=== PATIENT | female | born 1950 | race Caucasian/White ===

== ENCOUNTER 2020-06-16 17:02 | Inpatient (IN) | payer MEDICARE, OTHER, SELFPAY ==
[2020-06-16 17:03] VITALS: BMI 45.3
[2020-06-16 17:10] VITALS: BP 160/81; PULSE 64; RESP 18; TEMP 36.6; O2SAT 95
[2020-06-16 17:22] LABS: Glucose Point of Care 78 mg/dL (70-110)
--- NOTE | 2020-06-16 17:34 | XRR_ITS ---
PROCEDURE INFORMATION: Exam: XR Chest, 1 View Exam date and time: 06/16/2020 5:37 PM Age: 70 years old Clinical indication: Shortness of breath; Prior surgery; Surgery date: 6+ months; Surgery type: Heart stents; Additional info: AMS TECHNIQUE: Imaging protocol: XR of the chest Views: 1 view. COMPARISON: No relevant prior studies available. FINDINGS: Lungs: There is mild ground-glass opacity in the lung bases compatible with mild pneumonitis, interstitial edema or atelectasis. There is no dense lobar consolidation. Pleural space: Unremarkable. No pleural effusion. No pneumothorax. Heart/Mediastinum: The heart is enlarged. Bones/joints: No acute abnormality. Postoperative changes in the left humerus are noted. XR/XR chest 1V portable [id number] IMPRESSION: There is mild ground-glass opacity in the lung bases compatible with mild pneumonitis, interstitial edema or atelectasis.
--- NOTE | 2020-06-16 17:34 | CTR_ITS ---
PROCEDURE INFORMATION: Exam: CT Head Without Contrast Exam date and time: 06/16/2020 6:02 PM Age: 70 years old Clinical indication: Altered mental status/memory loss; Confusion or disorientation; Prior surgery; Surgery date: 6+ months; Surgery type: Post xrt craniotomy; Patient HX: Recent CVA C/O intermittent confusion; Additional info: AMS TECHNIQUE: Imaging protocol: Computed tomography of the head without contrast. Radiation optimization: All CT scans at this facility use at least one of these dose optimization techniques: automated exposure control; mA and/or kV adjustment per patient size (includes targeted exams where dose is matched to clinical indication); or iterative reconstruction. COMPARISON: No relevant prior studies available. RADIATION DOSE METRICS: Total DLP (mGy-cm): 880.81 FINDINGS: Brain: There is encephalomalacia of the left temporal lobe. There is volume loss and periventricular low density compatible with chronic small vessel disease changes. There is no acute hemorrhage, edema or mass effect. Ventricles: Normal. No ventriculomegaly. Bones/joints: Postoperative changes in the left temporal parietal bone are noted. Sinuses: There is mucosal thickening in the sinuses compatible probable chronic sinusitis. Mastoid air cells: There is trace opacification left mastoid air cells. The right mastoid air cells are clear. Soft tissues: Unremarkable. CT/CT head wo con* [id number] IMPRESSION: No acute intracranial abnormality. Chronic findings are noted as above. Radiation Dose CTDIVOL = (mGy): DLP = 880.81 (mGy-cm)
--- NOTE | 2020-06-16 17:50 | ED_ITS ---
Documented by User: Sander Harrell DO 06/19/20 06:12 HPI - Altered Mental Status General: Chief Complaint: Altered Mental Status Stated Complaint: AMS Time Seen by Provider: 06/16/20 17:18 History of Present Illness: HPI narrative: 70-year-old female presents emergency room via EMS with her she was discharged from hospital in [place] yesterday after a stroke is not able to care for her at home her blood sugar this morning this afternoon when they picked her up was 35 it improved after administration of D50. is complaining of altered mental status. She is not had any chest pain or dyspnea no trauma no vomiting or diarrhea denies dysuria. states she was awake and alert and interactive when she was discharged from the intermediate and since then she has gotten worse she is unable to recognize people she is known and regularly interacts with there is no fever no one that they know of is been exposed to COVID he is uncertain if she was screened for COVID at the hospital in [place]. complaint: altered mental status and confusion Onset (ago): hour(s) Timing confirmed by: spouse Severity: moderate Consistency of symptoms: Getting Worse Context: other (Recent CVA) Treatments prior to arrival: glucose Review of Systems General: Reports: ROS unobtainable due to mental status PFSH ED PFSH: Medical History (Updated 06/17/20 @ 06:53 by Carly Crowder MD) Coronary artery disease CVA (cerebral vascular accident) (~06/2020) Diabetes mellitus Hyperlipidemia Hypertension Renal carcinoma Surgical History (Updated 06/17/20 @ 06:53 by Carly Crowder MD) History of cataract surgery History of cholecystectomy History of hysterectomy History of nephrectomy, right History of PTCA Previous back surgery S/P cholecystectomy Family History (Updated 06/17/20 @ 07:53 by Carly Crowder MD) Other Hypertension Social History (Updated 06/17/20 @ 07:53 by Carly Crowder MD) Household members: spouse Marital status: Additional social history: Denies alcohol and drug use Physical Exam Const: COMMON NORMALS: no acute distress GENERAL APPEARANCE: cooperative and comfortable HENMT: COMMON NORMALS: normocephalic, atraumatic and hearing grossly normal bilaterally HEAD & SCALP: normocephalic and atraumatic Eye: COMMON NORMALS: Equal, round and reactive pupils present, EOMs intact bilaterally, conjunctivae normal and no scleral icterus CONJUNCTIVA: Yes conjunctivae normal PUPIL: Yes Equal, round and reactive pupils present Neck/C-Spine: COMMON NORMALS: full ROM, no lymphadenopathy, supple and no JVD Lymph: LYMPHATIC: no lymphadenopathy noted and no lymphedema noted Resp: COMMON NORMALS: normal respiratory effort, No retractions, No use of accessory muscles and clear to auscultation bilaterally AUSCULTATION: clear to auscultation bilaterally Cardio: COMMON NORMALS: no JVD, regular rate, regular rhythm and No murmurs present (Cardio) RATE: regular rate RHYTHM: regular rhythm GI: COMMON NORMALS: Soft to palpation and No hepatosplenomegaly present AUSCULTATION: Yes normoactive bowel sounds PALPATION: Yes Soft to palpation, No Tenderness to palpation present (GI), No Guarding due to palpation present (GI) and Yes No hepatosplenomegaly present Extremity: COMMON NORMALS: normal to inspection, capillary refill normal, no clubbing, cyanosis or edema, no calf tenderness and no pedal edema Skin: COMMON NORMALS: no rashes or lesions noted GENERAL SKIN EXAM: no rashes or lesions noted Course Vital Signs: Vital signs: Vital Signs Temperature 98.1 F 06/19/20 03:50 Pulse Rate 62 06/19/20 03:50 Respiratory Rate 16 06/19/20 03:50 Blood Pressure 181/65 06/19/20 03:50 Pulse Oximetry 97 06/19/20 03:50 MDM - Altered Mental Status MDM Narrative: Medical decision making narrative: Blood pressure poorly controlled recently hospitalized for stroke. Further evaluation pending care transferred to Dr. Taylor at change of shift. Lab Data: Labs: Lab Results 06/16/20 06/16/20 06/16/20 Range/Units 15:35 15:35 17:17 WBC 14.9 H (4.0-10.0) 10^3/ uL RBC 4.25 (4.1-5.3) 10^6/u L Hgb 11.5 (11.5-15.3) g/dL Hct 36.5 L (37.0-47.0) % MCV 85.9 (81-99) fL MCH 27.1 L (28.0-34.0) pg MCHC 31.5 (30.0-36.0) g/dL RDW 14.4 (12.1-15.1) % Plt Count 368 (130-400) 10^3/c mm MPV 10.6 H (7.4-10.4) fL Neut % (Auto) 69.2 % Lymph % (Auto) 17.7 % [place] % (Auto) 9.5 % Eos % (Auto) 2.5 % Baso % (Auto) 0.5 % Neut # (Auto) 10.32 H (1.8-7.7) 10^3/u L Lymph # (Auto) 2.6 (0.8-4.8) 10^3/u L [place] # (Auto) 1.4 H (0.2-0.9) 10^3/u L Eos # (Auto) 0.4 (0.0-0.8) 10^3/u L Baso # (Auto) 0.1 (0.0-0.1) 10^3/u L Nucleated RBC % (a uto) 0 % Nucleated RBCs # 0.0 /100WBC Specimen Type Sample Site ABG pH (7.35-7.45) ABG pCO2 (35-45) mmHg ABG pO2 (80.0-100.0) mmH g ABG HCO3 (22-26) mmol/L ABG Base Excess (-2.0-2.0) mmol/ L Alfredo Test Hematocrit (37-47) % Hgb O2 Saturation (95-100) % Carboxyhemoglobin (0.4-20.1) %THgb Methemoglobin (0.4-1.5) % Total Hemoglobin (12-16) g/dL O2 Delivery Device FiO2 % Certified Phlebotomy Technician ID Sodium 142 (136-145) mmol/L Potassium 3.9 (3.5-5.1) mmol/L Chloride 108 H (98-107) mmol/L Carbon Dioxide 22 (22-29) mmol/L Anion Gap 15.9 (5-19) BUN 25 H (8-23) mg/dL Creatinine 1.2 H (0.5-0.9) mg/dL GFR Calculation 44.7 L (90-130) mL/min Glucose 31 L* (65-115) mg/dL POC Glucose 78 (70-110) mg/dL Calculated Osmolal ity 287 (285-295) mOsm/k g Lactate (0.5-2.2) mmol/L Calcium 9.2 (8.5-10.5) mg/dL Magnesium 2.1 (1.7-2.3) mg/dL Total Bilirubin 0.2 (0.15-1.2) mg/dL AST 25 (0-32) U/L ALT 16 (0-33) U/L Alkaline Phosphata se 97 (35-105) IU/L Ammonia (11-51) umol/L Creatine Kinase 83 (26-192) U/L Total Protein 7.7 (6.6-8.7) g/dL Albumin 4.0 (3.5-5.2) g/dL Globulin 3.7 (1.3-4.6) g/dL Lipase 18 (13-60) U/L SARS-CoV-2 Ag (Rap id) (Negative) 06/16/20 06/16/20 06/16/20 Range/Units 18:10 18:10 19:00 WBC (4.0-10.0) 10^3/ uL RBC (4.1-5.3) 10^6/u L Hgb (11.5-15.3) g/dL Hct (37.0-47.0) % MCV (81-99) fL MCH (28.0-34.0) pg MCHC (30.0-36.0) g/dL RDW (12.1-15.1) % Plt Count (130-400) 10^3/c mm MPV (7.4-10.4) fL Neut % (Auto) % Lymph % (Auto) % [place] % (Auto) % Eos % (Auto) % Baso % (Auto) % Neut # (Auto) (1.8-7.7) 10^3/u L Lymph # (Auto) (0.8-4.8) 10^3/u L [place] # (Auto) (0.2-0.9) 10^3/u L Eos # (Auto) (0.0-0.8) 10^3/u L Baso # (Auto) (0.0-0.1) 10^3/u L Nucleated RBC % (a uto) % Nucleated RBCs # /100WBC Specimen Type Arterial Sample Site Radial, right ABG pH 7.36 (7.35-7.45) ABG pCO2 38.9 (35-45) mmHg ABG pO2 81.6 (80.0-100.0) mmH g ABG HCO3 21.9 L (22-26) mmol/L ABG Base Excess -3.3 L (-2.0-2.0) mmol/ L Alfredo Test Pos Hematocrit 35.0 L (37-47) % Hgb O2 Saturation 98.8 (95-100) % Carboxyhemoglobin 0.5 (0.4-20.1) %THgb Methemoglobin < 0.0 L (0.4-1.5) % Total Hemoglobin 11.4 L (12-16) g/dL O2 Delivery Device Room air FiO2 21.0 % Certified Phlebotomy Technician ID glc Sodium (136-145) mmol/L Potassium (3.5-5.1) mmol/L Chloride (98-107) mmol/L Carbon Dioxide (22-29) mmol/L Anion Gap (5-19) BUN (8-23) mg/dL Creatinine (0.5-0.9) mg/dL GFR Calculation (90-130) mL/min Glucose (65-115) mg/dL POC Glucose (70-110) mg/dL Calculated Osmolal ity (285-295) mOsm/k g Lactate 0.8 (0.5-2.2) mmol/L Calcium (8.5-10.5) mg/dL Magnesium (1.7-2.3) mg/dL Total Bilirubin (0.15-1.2) mg/dL AST (0-32) U/L ALT (0-33) U/L Alkaline Phosphata se (35-105) IU/L Ammonia 54 H (11-51) umol/L Creatine Kinase (26-192) U/L Total Protein (6.6-8.7) g/dL Albumin (3.5-5.2) g/dL Globulin (1.3-4.6) g/dL Lipase (13-60) U/L SARS-CoV-2 Ag (Rap id) (Negative) 06/16/20 06/16/20 Range/Units 21:24 21:34 WBC (4.0-10.0) 10^3/ uL RBC (4.1-5.3) 10^6/u L Hgb (11.5-15.3) g/dL Hct (37.0-47.0) % MCV (81-99) fL MCH (28.0-34.0) pg MCHC (30.0-36.0) g/dL RDW (12.1-15.1) % Plt Count (130-400) 10^3/c mm MPV (7.4-10.4) fL Neut % (Auto) % Lymph % (Auto) % [place] % (Auto) % Eos % (Auto) % Baso % (Auto) % Neut # (Auto) (1.8-7.7) 10^3/u L Lymph # (Auto) (0.8-4.8) 10^3/u L [place] # (Auto) (0.2-0.9) 10^3/u L Eos # (Auto) (0.0-0.8) 10^3/u L Baso # (Auto) (0.0-0.1) 10^3/u L Nucleated RBC % (a uto) % Nucleated RBCs # /100WBC Specimen Type Sample Site ABG pH (7.35-7.45) ABG pCO2 (35-45) mmHg ABG pO2 (80.0-100.0) mmH g ABG HCO3 (22-26) mmol/L ABG Base Excess (-2.0-2.0) mmol/ L Alfredo Test Hematocrit (37-47) % Hgb O2 Saturation (95-100) % Carboxyhemoglobin (0.4-20.1) %THgb Methemoglobin (0.4-1.5) % Total Hemoglobin (12-16) g/dL O2 Delivery Device FiO2 % Certified Phlebotomy Technician ID Sodium (136-145) mmol/L Potassium (3.5-5.1) mmol/L Chloride (98-107) mmol/L Carbon Dioxide (22-29) mmol/L Anion Gap (5-19) BUN (8-23) mg/dL Creatinine (0.5-0.9) mg/dL GFR Calculation (90-130) mL/min Glucose (65-115) mg/dL POC Glucose 201 (70-110) mg/dL Calculated Osmolal ity (285-295) mOsm/k g Lactate (0.5-2.2) mmol/L Calcium (8.5-10.5) mg/dL Magnesium (1.7-2.3) mg/dL Total Bilirubin (0.15-1.2) mg/dL AST (0-32) U/L ALT (0-33) U/L Alkaline Phosphata se (35-105) IU/L Ammonia (11-51) umol/L Creatine Kinase (26-192) U/L Total Protein (6.6-8.7) g/dL Albumin (3.5-5.2) g/dL Globulin (1.3-4.6) g/dL Lipase (13-60) U/L SARS-CoV-2 Ag (Rap id) Negative (Negative) Discharge Plan Discharge Patient Disposition: Admitted As Inpatient Admit Provider: Carly Crowder Clinical Impression: Hypoglycemia CVA (cerebral vascular accident) Qualifiers: CVA mechanism: thrombosis Precerebral and cerebral artery: middle cerebral artery Laterality of affected vessel: left Qualified Code(s): I63.312 - Cerebral infarction due to thrombosis of left middle cerebral artery Condition: Stable Discharge Date/Time: 06/16/20 23:01 Coding Level of Care Code ED Aircraft Maintenance Supervisor for Chg Fwd Documented by User: Douglas Taylor DO 06/17/20 04:46 HPI - Altered Mental Status General: Chief Complaint: Altered Mental Status Stated Complaint: AMS Time Seen by Provider: 06/16/20 17:18 PFSH ED PFSH: Medical History (Updated 06/17/20 @ 06:53 by Carly Crowder MD) Coronary artery disease CVA (cerebral vascular accident) (~06/2020) Diabetes mellitus Hyperlipidemia Hypertension Renal carcinoma Surgical History (Updated 06/17/20 @ 06:53 by Carly Crowder MD) History of cataract surgery History of cholecystectomy History of hysterectomy History of nephrectomy, right History of PTCA Previous back surgery S/P cholecystectomy Family History (Updated 06/17/20 @ 07:53 by Carly Crowder MD) Other Hypertension Social History (Updated 06/17/20 @ 07:53 by Carly Crowder MD) Household members: spouse Marital status: Additional social history: Denies alcohol and drug use Course Consultations: Consultation #1: fish Vital Signs: Vital signs: Vital Signs Temperature 98.1 F 06/19/20 03:50 Pulse Rate 62 06/19/20 03:50 Respiratory Rate 16 06/19/20 03:50 Blood Pressure 181/65 06/19/20 03:50 Pulse Oximetry 97 06/19/20 03:50 MDM - Altered Mental Status MDM Narrative: Medical decision making narrative: 70-year-old female checked out to me at shift change by Dr. Harrell. This lady had been hospitalized at [facility] in [place] recently post CVA. She was not treated with thrombolytics. She has been home for a couple of days, and has been very weak. She has not had proper intake. She is on insulin. She had mental status changes at home, and was found to have a blood sugar of 31. She got glucose in the field, which increased her glucose, but then it started to fall again here. She is placed on a drip of D5 normal saline which is kept her sugar up so far. She is unable to perform ADLs at home. admits that he is having trouble taking care of her. He is also required IV doses of medication for her hypertension here which is been uncontrolled. She will be admitted. Hospitalist agrees. Lab Data: Labs: Lab Results 06/16/20 06/16/20 06/16/20 Range/Units 15:35 15:35 17:17 WBC 14.9 H (4.0-10.0) 10^3/ uL RBC 4.25 (4.1-5.3) 10^6/u L Hgb 11.5 (11.5-15.3) g/dL Hct 36.5 L (37.0-47.0) % MCV 85.9 (81-99) fL MCH 27.1 L (28.0-34.0) pg MCHC 31.5 (30.0-36.0) g/dL RDW 14.4 (12.1-15.1) % Plt Count 368 (130-400) 10^3/c mm MPV 10.6 H (7.4-10.4) fL Neut % (Auto) 69.2 % Lymph % (Auto) 17.7 % [place] % (Auto) 9.5 % Eos % (Auto) 2.5 % Baso % (Auto) 0.5 % Neut # (Auto) 10.32 H (1.8-7.7) 10^3/u L Lymph # (Auto) 2.6 (0.8-4.8) 10^3/u L [place] # (Auto) 1.4 H (0.2-0.9) 10^3/u L Eos # (Auto) 0.4 (0.0-0.8) 10^3/u L Baso # (Auto) 0.1 (0.0-0.1) 10^3/u L Nucleated RBC % (a uto) 0 % Nucleated RBCs # 0.0 /100WBC Specimen Type Sample Site ABG pH (7.35-7.45) ABG pCO2 (35-45) mmHg ABG pO2 (80.0-100.0) mmH g ABG HCO3 (22-26) mmol/L ABG Base Excess (-2.0-2.0) mmol/ L Alfredo Test Hematocrit (37-47) % Hgb O2 Saturation (95-100) % Carboxyhemoglobin (0.4-20.1) %THgb Methemoglobin (0.4-1.5) % Total Hemoglobin (12-16) g/dL O2 Delivery Device FiO2 % Certified Phlebotomy Technician ID Sodium 142 (136-145) mmol/L Potassium 3.9 (3.5-5.1) mmol/L Chloride 108 H (98-107) mmol/L Carbon Dioxide 22 (22-29) mmol/L Anion Gap 15.9 (5-19) BUN 25 H (8-23) mg/dL Creatinine 1.2 H (0.5-0.9) mg/dL GFR Calculation 44.7 L (90-130) mL/min Glucose 31 L* (65-115) mg/dL POC Glucose 78 (70-110) mg/dL Calculated Osmolal ity 287 (285-295) mOsm/k g Lactate (0.5-2.2) mmol/L Calcium 9.2 (8.5-10.5) mg/dL Magnesium 2.1 (1.7-2.3) mg/dL Total Bilirubin 0.2 (0.15-1.2) mg/dL AST 25 (0-32) U/L ALT 16 (0-33) U/L Alkaline Phosphata se 97 (35-105) IU/L Ammonia (11-51) umol/L Creatine Kinase 83 (26-192) U/L Total Protein 7.7 (6.6-8.7) g/dL Albumin 4.0 (3.5-5.2) g/dL Globulin 3.7 (1.3-4.6) g/dL Lipase 18 (13-60) U/L SARS-CoV-2 Ag (Rap id) (Negative) 06/16/20 06/16/20 06/16/20 Range/Units 18:10 18:10 19:00 WBC (4.0-10.0) 10^3/ uL RBC (4.1-5.3) 10^6/u L Hgb (11.5-15.3) g/dL Hct (37.0-47.0) % MCV (81-99) fL MCH (28.0-34.0) pg MCHC (30.0-36.0) g/dL RDW (12.1-15.1) % Plt Count (130-400) 10^3/c mm MPV (7.4-10.4) fL Neut % (Auto) % Lymph % (Auto) % [place] % (Auto) % Eos % (Auto) % Baso % (Auto) % Neut # (Auto) (1.8-7.7) 10^3/u L Lymph # (Auto) (0.8-4.8) 10^3/u L [place] # (Auto) (0.2-0.9) 10^3/u L Eos # (Auto) (0.0-0.8) 10^3/u L Baso # (Auto) (0.0-0.1) 10^3/u L Nucleated RBC % (a uto) % Nucleated RBCs # /100WBC Specimen Type Arterial Sample Site Radial, right ABG pH 7.36 (7.35-7.45) ABG pCO2 38.9 (35-45) mmHg ABG pO2 81.6 (80.0-100.0) mmH g ABG HCO3 21.9 L (22-26) mmol/L ABG Base Excess -3.3 L (-2.0-2.0) mmol/ L Alfredo Test Pos Hematocrit 35.0 L (37-47) % Hgb O2 Saturation 98.8 (95-100) % Carboxyhemoglobin 0.5 (0.4-20.1) %THgb Methemoglobin < 0.0 L (0.4-1.5) % Total Hemoglobin 11.4 L (12-16) g/dL O2 Delivery Device Room air FiO2 21.0 % Certified Phlebotomy Technician ID glc Sodium (136-145) mmol/L Potassium (3.5-5.1) mmol/L Chloride (98-107) mmol/L Carbon Dioxide (22-29) mmol/L Anion Gap (5-19) BUN (8-23) mg/dL Creatinine (0.5-0.9) mg/dL GFR Calculation (90-130) mL/min Glucose (65-115) mg/dL POC Glucose (70-110) mg/dL Calculated Osmolal ity (285-295) mOsm/k g Lactate 0.8 (0.5-2.2) mmol/L Calcium (8.5-10.5) mg/dL Magnesium (1.7-2.3) mg/dL Total Bilirubin (0.15-1.2) mg/dL AST (0-32) U/L ALT (0-33) U/L Alkaline Phosphata se (35-105) IU/L Ammonia 54 H (11-51) umol/L Creatine Kinase (26-192) U/L Total Protein (6.6-8.7) g/dL Albumin (3.5-5.2) g/dL Globulin (1.3-4.6) g/dL Lipase (13-60) U/L SARS-CoV-2 Ag (Rap id) (Negative) 06/16/20 06/16/20 Range/Units 21:24 21:34 WBC (4.0-10.0) 10^3/ uL RBC (4.1-5.3) 10^6/u L Hgb (11.5-15.3) g/dL Hct (37.0-47.0) % MCV (81-99) fL MCH (28.0-34.0) pg MCHC (30.0-36.0) g/dL RDW (12.1-15.1) % Plt Count (130-400) 10^3/c mm MPV (7.4-10.4) fL Neut % (Auto) % Lymph % (Auto) % [place] % (Auto) % Eos % (Auto) % Baso % (Auto) % Neut # (Auto) (1.8-7.7) 10^3/u L Lymph # (Auto) (0.8-4.8) 10^3/u L [place] # (Auto) (0.2-0.9) 10^3/u L Eos # (Auto) (0.0-0.8) 10^3/u L Baso # (Auto) (0.0-0.1) 10^3/u L Nucleated RBC % (a uto) % Nucleated RBCs # /100WBC Specimen Type Sample Site ABG pH (7.35-7.45) ABG pCO2 (35-45) mmHg ABG pO2 (80.0-100.0) mmH g ABG HCO3 (22-26) mmol/L ABG Base Excess (-2.0-2.0) mmol/ L Alfredo Test Hematocrit (37-47) % Hgb O2 Saturation (95-100) % Carboxyhemoglobin (0.4-20.1) %THgb Methemoglobin (0.4-1.5) % Total Hemoglobin (12-16) g/dL O2 Delivery Device FiO2 % Certified Phlebotomy Technician ID Sodium (136-145) mmol/L Potassium (3.5-5.1) mmol/L Chloride (98-107) mmol/L Carbon Dioxide (22-29) mmol/L Anion Gap (5-19) BUN (8-23) mg/dL Creatinine (0.5-0.9) mg/dL GFR Calculation (90-130) mL/min Glucose (65-115) mg/dL POC Glucose 201 (70-110) mg/dL Calculated Osmolal ity (285-295) mOsm/k g Lactate (0.5-2.2) mmol/L Calcium (8.5-10.5) mg/dL Magnesium (1.7-2.3) mg/dL Total Bilirubin (0.15-1.2) mg/dL AST (0-32) U/L ALT (0-33) U/L Alkaline Phosphata se (35-105) IU/L Ammonia (11-51) umol/L Creatine Kinase (26-192) U/L Total Protein (6.6-8.7) g/dL Albumin (3.5-5.2) g/dL Globulin (1.3-4.6) g/dL Lipase (13-60) U/L SARS-CoV-2 Ag (Rap id) Negative (Negative) Discharge Plan Discharge Patient Disposition: Admitted As Inpatient Admit Provider: Carly Crowder Clinical Impression: Hypoglycemia CVA (cerebral vascular accident) Qualifiers: CVA mechanism: thrombosis Precerebral and cerebral artery: middle cerebral artery Laterality of affected vessel: left Qualified Code(s): I63.312 - Cerebral infarction due to thrombosis of left middle cerebral artery Condition: Stable Discharge Date/Time: 06/16/20 23:01 Coding Level of Care Code ED Aircraft Maintenance Supervisor for José Shankar
[2020-06-16 17:54] LABS: Basophils # 0.1 10^3/uL (0.0-0.1); Basophils % 0.5 %; Eosinophils # 0.4 10^3/uL (0.0-0.8); Eosinophils % 2.5 %; Hematocrit 36.5 % (37.0-47.0); Hemoglobin 11.5 g/dL (11.5-15.3); Lymphocytes # 2.6 10^3/uL (0.8-4.8); Lymphocytes % 17.7 %; Mean Corpuscular HGB Conc 31.5 g/dL (30.0-36.0); Mean Corpuscular Hemoglobin 27.1 pg (28.0-34.0); Mean Corpuscular Volume 85.9 fL (81-99); Mean Platelet Volume 10.6 fL (7.4-10.4); Monocytes # 1.4 10^3/uL (0.2-0.9); Monocytes % 9.5 %; Neutrophils # 10.32 10^3/uL (1.8-7.7); Neutrophils % 69.2 %; Nucleated Red Blood Cells % 0 %; Platelet Count 368 10^3/cmm (130-400); Red Blood Count 4.25 10^6/uL (4.1-5.3); Red Cell Distribution Width 14.4 % (12.1-15.1); White Blood Count 14.9 10^3/uL (4.0-10.0)
[2020-06-16 18:17] LABS: Alanine Aminotransferase 16 U/L (0-33); Alkaline Phosphatase 97 IU/L (35-105); Aspartate Amino Transferase 25 U/L (0-32); Blood Urea Nitrogen 25 mg/dL (8-23); Calcium 9.2 mg/dL (8.5-10.5); Carbon Dioxide 22 mmol/L (22-29); Chloride 108 mmol/L (98-107); Creatine Phosphokinase 83 U/L (26-192); Globulin 3.7 g/dL (1.3-4.6); Glomerular Filtration Rate 44.7 mL/min (90-130); Lipase 18 U/L (13-60); Magnesium 2.1 mg/dL (1.7-2.3); Osmolality Calculated 287 mOsm/kg (285-295); Sodium 142 mmol/L (136-145); Total Bilirubin 0.2 mg/dL (0.15-1.2); Total Protein 7.7 g/dL (6.6-8.7)
[2020-06-16 18:18] LABS: Creatinine Clr Calc Pharmacy 51.1592
[2020-06-16 18:19] LABS: Anion Gap 15.9 (5-19); Potassium 3.9 mmol/L (3.5-5.1)
[2020-06-16 18:21] LABS: Glucose 31 mg/dL (65-115)
[2020-06-16 18:43] LABS: Ammonia 54 umol/L (11-51)
[2020-06-16] MEDS: dextrose 5%-sod chloride 0.9% 1,000 ML 100 ML IV (18:47)
[2020-06-16 19:08] LABS: Lactate (Lactic Acid level) 0.8 mmol/L (0.5-2.2)
[2020-06-16 19:09] LABS: ABG PCO2 38.9 mmHg (35-45); ABG PH Result 7.36 (7.35-7.45); Base Excess ABG -3.3 mmol/L (-2.0-2.0); Blood Gas Allen Test Pos; Blood Gas Operator Identificat glc; Blood Gas Sample Site Radial, right; Blood Gas Sample Type Arterial; Carboxyhemoglobin 0.5 %THgb (0.4-20.1); HCO3 ABG 21.9 mmol/L (22-26); HGB O2 Sat 98.8 % (95-100); Methemoglobin < 0.0 % (0.4-1.5); Oxygen Device ROOM AIR; PO2 ABG 81.6 mmHg (80.0-100.0); Total Hemoglobin 11.4 g/dL (12-16)
[2020-06-16] MEDS: amlodipine 10 mg Tablet PO (19:38)
[2020-06-16] MEDS: hyDRALAzine 20 mg/mL INJ 1 mL IVP (19:38)
[2020-06-16 19:39] VITALS: BP 205/73; PULSE 66; RESP 16; O2SAT 98
[2020-06-16 20:19] VITALS: BP 168/64; PULSE 75; RESP 18; O2SAT 98
[2020-06-16 21:00] VITALS: BP 167/77; PULSE 82; RESP 16; O2SAT 98
--- NOTE | 2020-06-16 21:26 | PM.HP ---
Providers/Chief Complaint Admitting Physician: Lakesha Primary Care Provider: in Guillermo Mandujano, cannot recall name Chief Complaint: AMS History of Present Illness Mamta Fowler is a 70 year old female who presented to the emergency room with chief complaint of altered mental status. Patient has recently been hospitalized at [facility] in [place] for stroke. Did not receive TPA from report. She was discharged 4 days ago. She is a known diabetic and takes insulin, it appears to be short acting regular insulin several times a day. The gives her her insulin. Patient had been sleeping more and then became unresponsive today. EMS was called. They found patient's blood sugar to be 35. She received some D50 in route. On arrival here blood sugars remain low in the 50s. She was given additional D50 and started on D5W. She continued to be hypoglycemic for quite a while. indicated to the ER staff that he has not been able to care for her adequately since she came home. Patient herself thinks that she is doing okay with everything. She reports that her stroke involved some memory or vision changes and possibly speech changes. Her left arm is weak. At times talking with her get a sense that she has some mild dysphasia/word finding difficulties though it is not consistent. She has no recollection of the events leading to the admission to the hospital. She states that she is unable to walk much. She eats regular food with no difficulty swallowing. She does report a fall recently but denies any injuries she has a walker at home. She says she does not have any home health or other services. No report of any fevers, no known sick contacts beyond what ever she might of been exposed to at the hospital recently. Review of Systems General: Reports: Other (Review of systems is limited secondary to current mental status) Const: Reports: change in appetite, fatigue and change in sleep pattern; Denies: fever(s) or chills Eyes: Reports: change in vision ENMT: Denies: throat pain, dry mouth or nasal congestion Card: Denies: chest pain or edema Resp: Denies: dyspnea, productive cough or non-productive cough GI: Denies: abdominal pain, nausea, vomiting, diarrhea or constipation : Reports: urinary incontinence; Denies: difficulty voiding Musc: Denies: joint swelling or joint redness Skin/Breast: Reports: rash; Denies: pruritus Neuro: Reports: numbness in extremities (Left side), weakness in extremities (Left arm), sensory changes (Left), frequent falls, confusion and Slurred speech present; Denies: headache(s) or dizziness Psych: Denies: anxiety or depression Paul/Lymph: Denies: easy bruising or easy bleeding Medications/Allergies Home Medications Medication Instructions Recorded Confirmed Last Taken Type amlodipine 5 mg PO DAILY 06/16/20 06/16/20 06/16/20 History aspirin 81 mg PO DAILY 06/16/20 06/16/20 06/16/20 History atorvastatin 80 mg PO DAILY 06/16/20 06/16/20 06/15/20 History carvedilol 25 mg PO BID 06/16/20 06/16/20 06/16/20 History cefuroxime axetil 500 mg PO BID 06/16/20 06/16/20 Unknown History cetirizine 10 mg PO DAILY 06/16/20 06/16/20 06/16/20 History clopidogrel 75 mg PO DAILY 06/16/20 06/16/20 06/16/20 History gabapentin 600 mg PO BID 06/16/20 06/16/20 06/16/20 History insulin regular human [Novolin R 30 unit SUBCUT TID 06/16/20 06/16/20 06/16/20 History Flexpen] isosorbide mononitrate 60 mg PO DAILY 06/16/20 06/16/20 06/16/20 History losartan 50 mg PO DAILY 06/16/20 06/16/20 06/16/20 History metoclopramide HCl [Reglan] 10 mg PO Q6H PRN 06/16/20 06/16/20 Unknown History Allergies Allergy/AdvReac Type Severity Reaction Status Date / Time morphine Allergy Unknown Unknown Verified 06/16/20 18:24 PFSH Acute PFSH: Medical History (Updated 06/17/20 @ 06:53 by Carly Crowder MD) Coronary artery disease CVA (cerebral vascular accident) (~06/2020) Diabetes mellitus Hyperlipidemia Hypertension Renal carcinoma Surgical History (Updated 06/17/20 @ 06:53 by Carly Crowder MD) History of cataract surgery History of cholecystectomy History of hysterectomy History of nephrectomy, right History of PTCA Previous back surgery S/P cholecystectomy Family History (Updated 06/17/20 @ 07:53 by Carly Crowder MD) Other Hypertension Social History (Updated 06/17/20 @ 07:53 by Carly Crowder MD) Household members: spouse Marital status: Additional social history: Denies alcohol and drug use Vitals/I&O/Wt Last Vital Signs Temp 97.8 F 06/16/20 17:10 Pulse 82 06/16/20 21:00 Resp 16 06/16/20 21:00 BP 167/77 06/16/20 21:00 Pulse Ox 98 06/16/20 21:00 Weight last 48 hrs Weight 108.862 kg Physical Exam Const: OTHER: Sleepy but arouses, answers questions but slowly HENMT: OTHER: Facial droop noted, mucous membranes dry nasopharynx clear Eye: OTHER: Extraocular movements are intact, left pupil is not as reactive his right Neck/C-Spine: OTHER: Large but supple Resp: OTHER: Clear, no rales rhonchi or wheezes noted Cardio: OTHER: Regular rate and rhythm, no murmurs GI: OTHER: Nontender with positive bowel sounds Extremity: NARRATIVE EXTREMITY EXAM: No pitting edema, right ankle is a little bit swollen compared to the left but no warmth or erythema or obvious tenderness. Left upper extremity is edematous particularly at the hand Neuro: OTHER: Speech is clear although some words do not appear appropriate at times, unable to black off worker with left hand, strong black off worker right hand, strength in left lower extremity is slightly less than strength in right lower extremity, gait was not assessed Skin: NARRATIVE SKIN EXAM: Dry skin, erythematous patches over the face without warmth, few bruises at sites of likely medical mention such as IVs, blood draws and injections Data : 06/17/20 05:06 06/17/20 05:06 Other Labs: ABG 06/16/20 19:00 ABG pH 7.36 ABG pCO2 38.9 ABG pO2 81.6 ABG HCO3 21.9 L ABG Base Excess -3.3 L Liver Function 06/16/20 Range/Units 15:35 Total Bilirubin 0.2 (0.15-1.2) mg/dL AST 25 (0-32) U/L ALT 16 (0-33) U/L Alkaline Phosphatase 97 (35-105) IU/L Albumin 4.0 (3.5-5.2) g/dL Laboratory Tests 06/16/20 06/16/20 06/16/20 15:35 15:35 17:17 Neut # (Auto) 10.32 H Lymph # (Auto) 2.6 [place] # (Auto) 1.4 H POC Glucose 78 Lactate Magnesium 2.1 Ammonia Creatine Kinase 83 Lipase 18 06/16/20 06/16/20 18:10 18:10 Neut # (Auto) Lymph # (Auto) [place] # (Auto) POC Glucose Lactate 0.8 Magnesium Ammonia 54 H Creatine Kinase Lipase CXR: Radiologist's impression: FINDINGS: Lungs: There is mild ground-glass opacity in the lung bases compatible with mild pneumonitis, interstitial edema or atelectasis. There is no dense lobar consolidation. Pleural space: Unremarkable. No pleural effusion. No pneumothorax. Heart/Mediastinum: The heart is enlarged. Bones/joints: No acute abnormality. Postoperative changes in the left humerus are noted. XR/XR chest 1V portable [id number] IMPRESSION: There is mild ground-glass opacity in the lung bases compatible with mild pneumonitis, interstitial edema or atelectasis. A&P Assessment and plan (1) Acute metabolic encephalopathy: Clinically appears to be secondary to hypoglycemia. Patient does however have some leukocytosis, possible acute kidney injury and very minimal elevation in ammonia level. Home medication list indicates treatment with cefuroxime currently. I am not 100% sure what that is for. Possible urinary tract infection would be my guess. Status: Acute (2) Hypoglycemia: Recurrent, has required initiation of D5 infusion after being treated in the field and on arrival here Status: Acute (3) Acute kidney injury: Versus baseline renal function, do not have any prior comparative labs Status: Acute (4) Opacities of both lungs present on chest x-ray: Nonspecific, no reported respiratory symptoms or fever Status: Acute (5) Diabetes mellitus: Chronically appears to be only on short acting insulin Status: Chronic Qualifiers: Diabetes mellitus complication detail: with other circulatory complications Diabetes mellitus complication status: with circulatory complication Diabetes mellitus fci insulin use: with terminal gauger use Diabetes mellitus type: type 2 Qualified Code(s): E11.59 - Type 2 diabetes mellitus with other circulatory complications; Z79.4 - MCC (current) use of insulin (6) CVA (cerebral vascular accident): Just discharged from [facility] in [place] 4 days ago Status: Chronic Qualifiers: CVA mechanism: unspecified Qualified Code(s): I63.9 - Cerebral infarction, unspecified (7) Single kidney: Secondary to nephrectomy from renal cell carcinoma Status: Chronic (8) Coronary artery disease: Status: Chronic Additional A&P Information Inpatient admission Continue D5W Serial neuro exams Serial Accu-Cheks Monitor for need to resume some insulin I have requested records from [facility] in [place] We will go on and check COVID rapid antigen test secondary to abnormalities on chest x-ray and 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 Hold home losartan but currently continuing other medications On aspirin, Plavix, statin, carvedilol, isosorbide, amlodipine Continue cetirizine and gabapentin Recheck renal function in the morning Urinalysis is ordered but has not yet been collected Will currently treat with Rocephin and see if we can get clear indication of what the antibiotic coverage is for PT and OT evaluations member services representative consultation for possibility of skilled placement status post recent stroke and rather quick readmission to the hospital for medical issues SCDs for DVT prophylaxis until I get a little bit more information about recent hospital stay Supportive care otherwise Full code Attestations Medical Necessity Statement*: Anticipated stay greater than 2 midnights in this patient presenting with altered mental status and hypoglycemia that is required IV fluids. She is only on short acting insulin that I can tell and then beta-blockade would be the only other medicine that might cause some degree of hypoglycemia. Need to be sure that there is not another reason for the hypoglycemia in this situation. Patient also has a single kidney with currently presumed acute kidney injury although have no comparative labs. It seems clear that is having a difficult time adequately caring for her at home. Plans are as noted. Coding Level of Care Code Acute Molder Inflated Ball for [facility] Diagnoses Acute metabolic encephalopathy G93.41 Hypoglycemia E16.2 Acute kidney injury N17.9 Opacities of both lungs present on chest x-ray R91.8 Diabetes mellitus E11.59; Z79.4 Diabetes mellitus complication detail: with other circulatory complications Diabetes mellitus complication status: with circulatory complication Diabetes mellitus terminal gauger insulin use: with terminal gauger use Diabetes mellitus type: type 2 CVA (cerebral vascular accident) I63.9 CVA mechanism: unspecified Single kidney Z90.5 Coronary artery disease I25.10
[2020-06-16 21:30] LABS: Glucose Point of Care 201 mg/dL (70-110)
[2020-06-16 22:08] LABS: SARS Covid-2 Antigen Negative (Negative)
[2020-06-16 22:58] VITALS: BP 175/72; PULSE 80; RESP 16; O2SAT 98
[2020-06-16 23:28] LABS: Add Urine Microscopic? YES; Bilirubin Urine Neg (NEGATIVE); Blood Urine Neg (Negative); Glucose Urine UA Trace (Normal); Ketones Urine Negative (Negative); Leukocyte Esterase Urine Negative (Negative); Nitrate Urine Negative (Negative); Protein Urine 3+ (Negative); Urine Appearance Clear (CLEAR); Urine Color Yellow (Yellow); Urobilinogen Urine Norm (Negative); pH Urine 5 (5-7)
[2020-06-16 23:29] LABS: Glucose Point of Care 136 mg/dL (70-110)
[2020-06-16 23:33] VITALS: BP 170/68; PULSE 80; RESP 19; TEMP 37
[2020-06-16 23:44] LABS: Add Urine Culture? No; Bacteria Urine TRACE; Hyaline Casts Urine RARE; Mucus Urine TRACE; RBC Urine 0-4 /hpf (0-2); Squamous Epithelial Cell Urine 15-25 (0-5); WBC Urine 0-4 /hpf (0-5)
[2020-06-17] VITALS (7 sets, daily range): BP systolic 103–184; BP diastolic 41–75; PULSE 71–84; RESP 18–20; TEMP 36.3–37.1; O2SAT 96–99
[2020-06-17] MEDS: carvedilol 25 mg Tablet PO ×2 (00:36→14:00)
[2020-06-17] MEDS: cefTRIAXone 1,000 MG in sodium chloride 0.9% (plus) 50 ML 100 MG IV (00:38)
[2020-06-17 03:18] LABS: Glucose Point of Care 168 mg/dL (70-110)
[2020-06-17 05:44] LABS: Basophils # 0.1 10^3/uL (0.0-0.1); Basophils % 0.6 %; Eosinophils # 0.3 10^3/uL (0.0-0.8); Eosinophils % 2.4 %; Hematocrit 33.5 % (37.0-47.0); Hemoglobin 10.4 g/dL (11.5-15.3); Lymphocytes # 2.3 10^3/uL (0.8-4.8); Lymphocytes % 19.2 %; Mean Corpuscular Hemoglobin 27.4 pg (28.0-34.0); Mean Corpuscular Volume 88.2 fL (81-99); Mean Platelet Volume 10.3 fL (7.4-10.4); Monocytes # 1.2 10^3/uL (0.2-0.9); Monocytes % 9.9 %; Neutrophils # 8.23 10^3/uL (1.8-7.7); Neutrophils % 67.5 %; Nucleated Red Blood Cells % 0 %; Platelet Count 275 10^3/cmm (130-400); Red Cell Distribution Width 14.4 % (12.1-15.1); White Blood Count 12.2 10^3/uL (4.0-10.0)
[2020-06-17 06:11] LABS: Alanine Aminotransferase 13 U/L (0-33); Albumin Level 3.5 g/dL (3.5-5.2); Alkaline Phosphatase 86 IU/L (35-105); Anion Gap 13.9 (5-19); Aspartate Amino Transferase 17 U/L (0-32); Blood Urea Nitrogen 21 mg/dL (8-23); Calcium 8.7 mg/dL (8.5-10.5); Carbon Dioxide 22 mmol/L (22-29); Chloride 110 mmol/L (98-107); Globulin 3.3 g/dL (1.3-4.6); Glomerular Filtration Rate 49.4 mL/min (90-130); Glucose 156 mg/dL (65-115); Magnesium 2.1 mg/dL (1.7-2.3); Osmolality Calculated 294 mOsm/kg (285-295); Phosphorus 2.3 mg/dL (2.5-4.5); Potassium 3.9 mmol/L (3.5-5.1); Sodium 142 mmol/L (136-145); Total Bilirubin 0.2 mg/dL (0.15-1.2); Total Protein 6.8 g/dL (6.6-8.7)
[2020-06-17 07:21] LABS: Glucose Point of Care 145 mg/dL (70-110)
[2020-06-17] MEDS: isosorbide mononitrate ER 60 mg Tablet PO (08:36)
[2020-06-17] MEDS: docusate sodium 100 mg Capsule PO ×2 (08:36→18:38)
[2020-06-17] MEDS: aspirin 81 mg Chew Tablet PO (08:36)
[2020-06-17] MEDS: clopidogrel 75 mg Tablet PO (08:37)
[2020-06-17] MEDS: amlodipine 5 mg Tablet PO (08:37)
[2020-06-17] MEDS: cetirizine 10 mg Tablet PO (08:37)
[2020-06-17] MEDS: gabapentin 300 mg Capsule 600 MG PO ×2 (08:37→18:38)
[2020-06-17] MEDS: atorvastatin 40 mg Tablet 80 MG PO (08:38)
--- NOTE | 2020-06-17 15:49 | P.PN_ITS ---
Subjective Subjective: Interval history: She is doing a little better she says. She appears to be still confused somewhat although difficult to say due to her aphasia. She cannot say that she is in the hospital, but agrees with it when this is stated. She cannot remember the year, cannot exactly remember why she is here. When asked if she remembers being at [facility] due to stroke, says that she remembers. Vitals/I&O/Wt Last Vital Signs Temp 98.7 F 06/17/20 12:00 Pulse 78 06/17/20 15:33 Resp 18 06/17/20 15:33 BP 110/41 06/17/20 12:00 Pulse Ox 96 06/17/20 15:33 06/17/20 06/17/20 06/17/20 06:59 14:59 22:59 Intake Total 60 / 60 480 / 480 Output Total 950 / 950 Balance 60 / 60 -470 / -470 Weight last 48 hrs Weight 108.862 kg Physical Exam Const: COMMON NORMALS: no acute distress; negative for patient oriented x3 NUTRITIONAL APPEARANCE: obese ORIENTATION/CONSCIOUSNESS: Yes oriented to person HENMT: COMMON NORMALS: oropharynx normal Neck/C-Spine: COMMON NORMALS: no JVD Resp: COMMON NORMALS: normal respiratory effort and clear to auscultation bilaterally AUSCULTATION: clear to auscultation bilaterally Cardio: COMMON NORMALS: no JVD, regular rhythm, S1 normal heart sound present, S2 normal heart sound present and No murmurs present (Cardio) RHYTHM: regular rhythm HEART SOUNDS: S1 normal heart sound present and S2 normal heart sound present GI: COMMON NORMALS: Normal to inspection, nondistended, normoactive bowel so unds present, Soft to palpation and non-tender PALPATION: Yes Soft to palpation Extremity: COMMON NORMALS: no joint enlargement and no pedal edema Neuro: COMMON NORMALS: moves all extremities; negative for patient oriented x3 SENSORIUM/ORIENTATION: Yes oriented to person Skin: COMMON NORMALS: no rashes or lesions noted GENERAL SKIN EXAM: no rashes or lesions noted Data : 06/17/20 05:06 06/17/20 05:06 A&P Assessment and plan (1) Acute metabolic encephalopathy: Hypoglycemia has resolved. It is somewhat difficult to assess her mental status, but she still appears to be somewhat confused. She has underlying a aphasia, and so has difficult time finding the right words, although does not appear to know where she is, or what year it is. Otherwise appears comfortable, is cooperative, and does agree with the right answers. Ammonia is minimally elevated. Significance of this is unclear. She has neutrophilic leukocytosis. Perhaps this, as well as confusion may be secondary to the pneumonitis noted on chest x-ray. With recent CVA, will get speech therapy evaluation. Monitor for any aspiration. UA sample appears dirty with squamous cells, otherwise not suggestive of UTI. Has been on cefuroxime prior to coming to the hospital. Possibility of UTI. I checked and still do not see any records from [facility]. Will need to follow-up to see if there can be any additional causes. Status: Acute (2) CVA (cerebral vascular accident): Just discharged from [facility] in [place] 4 days ago. Awaiting documenta tion. Tried to call the to confirm how her mental status is at baseline, but unfortunately could not reach him. He stated he has had difficulties with managing her care at home. Social servic es is looking on possibilities of placement to jail facility. 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 Blood glucose currently in the normal range. Will encourage oral nutrition, and see if we can discontinue D5W. Status: Acute (4) Acute kidney injury: Slightly better, creatinine down to 1.1. Continue gentle IV hydration. 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
[2020-06-18] VITALS (7 sets, daily range): BP systolic 140–185; BP diastolic 67–79; PULSE 54–78; RESP 16–20; TEMP 36.4–36.9; O2SAT 94–97
[2020-06-18] MEDS: cefTRIAXone 1,000 MG in sodium chloride 0.9% (plus) 50 ML 100 MG IV (00:08)
[2020-06-18] MEDS: carvedilol 25 mg Tablet PO (00:09)
[2020-06-18 03:40] LABS: Basophils # 0.1 10^3/uL (0.0-0.1); Basophils % 0.7 %; Eosinophils # 0.4 10^3/uL (0.0-0.8); Eosinophils % 2.7 %; Hematocrit 35.8 % (37.0-47.0); Lymphocytes # 2.9 10^3/uL (0.8-4.8); Lymphocytes % 21.8 %; Mean Corpuscular HGB Conc 30.7 g/dL (30.0-36.0); Mean Corpuscular Hemoglobin 26.7 pg (28.0-34.0); Mean Corpuscular Volume 86.9 fL (81-99); Mean Platelet Volume 10.2 fL (7.4-10.4); Monocytes # 1.3 10^3/uL (0.2-0.9); Monocytes % 9.5 %; Neutrophils # 8.57 10^3/uL (1.8-7.7); Neutrophils % 64.9 %; Nucleated Red Blood Cells % 0 %; Platelet Count 344 10^3/cmm (130-400); Red Blood Count 4.12 10^6/uL (4.1-5.3); Red Cell Distribution Width 14.3 % (12.1-15.1); White Blood Count 13.2 10^3/uL (4.0-10.0)
[2020-06-18 03:58] LABS: Alanine Aminotransferase 12 U/L (0-33); Albumin Level 3.7 g/dL (3.5-5.2); Alkaline Phosphatase 95 IU/L (35-105); Anion Gap 14.5 (5-19); Aspartate Amino Transferase 13 U/L (0-32); Blood Urea Nitrogen 23 mg/dL (8-23); Calcium 8.8 mg/dL (8.5-10.5); Carbon Dioxide 21 mmol/L (22-29); Chloride 108 mmol/L (98-107); Creatinine Clr Calc Pharmacy 51.1592; Globulin 3.3 g/dL (1.3-4.6); Glomerular Filtration Rate 44.7 mL/min (90-130); Glucose 238 mg/dL (65-115); Osmolality Calculated 292 mOsm/kg (285-295); Potassium 4.5 mmol/L (3.5-5.1); Sodium 139 mmol/L (136-145); Total Bilirubin 0.2 mg/dL (0.15-1.2)
[2020-06-18 06:30] LABS: Glucose Point of Care 204 mg/dL (70-110)
[2020-06-18] MEDS: atorvastatin 40 mg Tablet 80 MG PO (08:26)
[2020-06-18] MEDS: docusate sodium 100 mg Capsule PO ×2 (08:27→17:04)
[2020-06-18] MEDS: aspirin 81 mg Chew Tablet PO (08:27)
[2020-06-18] MEDS: clopidogrel 75 mg Tablet PO (08:27)
[2020-06-18] MEDS: amlodipine 5 mg Tablet PO (08:27)
[2020-06-18] MEDS: cetirizine 10 mg Tablet PO (08:27)
[2020-06-18] MEDS: isosorbide mononitrate ER 60 mg Tablet PO (08:27)
[2020-06-18] MEDS: gabapentin 300 mg Capsule 600 MG PO ×2 (08:27→17:04)
--- NOTE | 2020-06-18 20:22 | PM.PN ---
Subjective Subjective: Interval history: Today she is doing better. She is more alert, more keenly responsive. She denies any discomfort. She is finding it difficult time finding the words to give her answers. Vitals/I&O/Wt Last Vital Signs Temp 98.2 F 06/18/20 19:58 Pulse 64 06/18/20 19:58 Resp 16 06/18/20 19:58 BP 171/73 06/18/20 19:58 Pulse Ox 97 06/18/20 19:58 06/18/20 06/18/20 06/18/20 06:59 14:59 22:59 Intake Total 50 / 770 594 / 594 Output Total 400 / 1350 1200 / 1200 Balance -350 / -580 -606 / -606 Physical Exam Const: COMMON NORMALS: no acute distress NUTRITIONAL APPEARANCE: obese ORIENTATION/CONSCIOUSNESS: Yes oriented to person HENMT: COMMON NORMALS: oropharynx normal Neck/C-Spine: COMMON NORMALS: no meningeal signs and no JVD Resp: COMMON NORMALS: normal respiratory effort and clear to auscultation bilaterally AUSCULTATION: clear to auscultation bilaterally Cardio: COMMON NORMALS: no JVD, regular rhythm, S1 normal heart sound present, S2 normal heart sound present and No murmurs present (Cardio) RHYTHM: regular rhythm HEART SOUNDS: S1 normal heart sound present and S2 normal heart sound present GI: COMMON NORMALS: Normal to inspection, nondistended, normoactive bowel sounds present, Soft to palpation and non-tender PALPATION: Yes Soft to palpation Extremity: COMMON NORMALS: no joint enlargement and no pedal edema NARRATIVE EXTREMITY EXAM: Left upper extremity chronically with impaired motor skills. OTHER: Scar from prior surgery in the left arm. Neuro: COMMON NORMALS: moves all extremities SENSORIUM/ORIENTATION: Yes oriented to person MENINGEAL SIGNS: Yes no meningeal signs COORDINATION/BALANCE: [id number] test normal (On right, on the left chronically impaired motor skills due to prior surgery.) SENSORY EXAM: Yes Normal double simultaneous stimulation for sensation MOTOR EXAM: Other motor observations present (3+/5 power except LUE which is chronically impaired. ) COORDINATION: [id number] test normal (On right, on the left chronically impaired motor skills due to prior surgery.) Skin: COMMON NORMALS: no rashes or lesions noted GENERAL SKIN EXAM: no rashes or lesions noted Data : 06/18/20 03:13 06/18/20 03:13 A&P Assessment and plan (1) Acute metabolic encephalopathy: This is somewhat better today. She is more appropriate. Appears comfortable. More alert and stronger. She is still having difficulties expressing her thoughts, which appears to be secondary to a aphasia and appears to be persistent. She seems to be able to confirm correct answers easier than come up with right words. Still it is difficult to assess whether there is some residual encephalopathy. For now continue to monitor. Hypoglycemia has resolved. confirms that cefuroxime was for a urinary infection. We are awaiting records from [facility]. Hypertension on presentation, blood pressure appears to be somewhat better. Will increase amlodipine dose to 10 mg. Losartan has been on hold due to kidney injury. Underlying a aphasia makes communication difficult. Ammonia is minimally elevated. Significance of this is unclear. She has neutrophilic leukocytosis. Perhaps this, as well as confusion may be secondary to the pneumonitis noted on chest x-ray. With recent CVA, will get speech therapy evaluation. Monitor for any aspiration. UA sample appears dirty with squamous cells, otherwise not suggestive of UTI. Has been on cefuroxime prior to coming to the hospital. Possibility of UTI. I checked and still do not see any records from [facility]. Will need to follow-up to see if there can be any additional causes. Status: Acute (2) CVA (cerebral vascular accident): Just discharged from [facility] in [place] where she was admitted last Thursday. Awaiting documentation. stated he has had difficulties with managing her care at home. human resources services specialist is looking on possibilities of placement to nursing home facility. With decline in functional capacity following stroke she would benefit from rehabilitation. 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 Blood glucose currently in the normal range. Will encourage oral nutrition, and see if we can discontinue D5W. Status: Acute (4) Acute kidney injury: Mild, versus CKD. Status: Acute (5) Opacities of both lungs present on chest x-ray: Possibility of mild pneumonitis. Nonspecific, no reported respiratory symptoms. Remains afebrile. Status: Acute (6) Diabetes mellitus: Chronically appears to be only on short acting insulin Status: Chronic Qualifiers: Diabetes mellitus type: type 2 Diabetes mellitus usp insulin use: with superintendent terminal use Diabetes mellitus complication status: with circulatory complication Diabetes mellitus complication detail: with other circulatory complications Qualified Code(s): E11.59 - Type 2 diabetes mellitus with other circulatory complications; Z79.4 - terminal superintendent (current) use of insulin (7) Single kidney: Secondary to nephrectomy from renal cell carcinoma Status: Chronic (8) Coronary artery disease: Status: Chronic Attestations Medical Necessity Statement*: Continue admission for assessment of management of acute encephalopathy, with episode of hypoglycemia, with urinary tract infection, pneumonitis, recent CVA, arrangements for placement to nursing home facility for rehabilitation. Coding Level of Care Code Acute Public Relations Officer for [facility] Diagnoses Acute metabolic encephalopathy G93.41 CVA (cerebral vascular accident) I63.312 CVA mechanism: thrombosis Precerebral and cerebral artery: middle cerebral artery Laterality of affected vessel: left Hypoglycemia E16.2 Acute kidney injury N17.9 Opacities of both lungs present on chest x-ray R91.8 Diabetes mellitus E11.59; Z79.4 Diabetes mellitus type: type 2 Diabetes mellitus superintendent terminal insulin use: with usp use Diabetes mellitus complication status: with circulatory complication Diabetes mellitus complication detail: with other circulatory complications Single kidney Z90.5 Coronary artery disease I25.10
[2020-06-18 21:25] LABS: Glucose Point of Care 302 mg/dL (70-110)
[2020-06-18] MEDS: insulin glargine 100 units/1 mL 10 UNIT SUBCUT (22:31)
[2020-06-19] MEDS: cefTRIAXone 1,000 MG in sodium chloride 0.9% (plus) 50 ML 100 MG IV (03:37)
[2020-06-19 03:50] VITALS: BP 181/65; PULSE 62; RESP 16; TEMP 36.7; O2SAT 97
[2020-06-19 04:49] LABS: Basophils # 0.1 10^3/uL (0.0-0.1); Basophils % 0.6 %; Eosinophils # 0.4 10^3/uL (0.0-0.8); Eosinophils % 3.5 %; Hematocrit 35.8 % (37.0-47.0); Hemoglobin 10.8 g/dL (11.5-15.3); Lymphocytes # 2.4 10^3/uL (0.8-4.8); Lymphocytes % 21.1 %; Mean Corpuscular HGB Conc 30.2 g/dL (30.0-36.0); Mean Corpuscular Hemoglobin 26.8 pg (28.0-34.0); Mean Corpuscular Volume 88.8 fL (81-99); Monocytes # 1.1 10^3/uL (0.2-0.9); Monocytes % 9.6 %; Neutrophils # 7.28 10^3/uL (1.8-7.7); Neutrophils % 64.8 %; Nucleated Red Blood Cells % 0 %; Platelet Count 306 10^3/cmm (130-400); Red Blood Count 4.03 10^6/uL (4.1-5.3); Red Cell Distribution Width 13.9 % (12.1-15.1); White Blood Count 11.2 10^3/uL (4.0-10.0)
[2020-06-19 05:23] LABS: Alanine Aminotransferase 11 U/L (0-33); Albumin Level 3.3 g/dL (3.5-5.2); Alkaline Phosphatase 94 IU/L (35-105); Anion Gap 13.2 (5-19); Aspartate Amino Transferase 9 U/L (0-32); Blood Urea Nitrogen 21 mg/dL (8-23); Calcium 8.7 mg/dL (8.5-10.5); Carbon Dioxide 21 mmol/L (22-29); Chloride 107 mmol/L (98-107); Globulin 3.6 g/dL (1.3-4.6); Glomerular Filtration Rate 55.1 mL/min (90-130); Glucose 244 mg/dL (65-115); Osmolality Calculated 289 mOsm/kg (285-295); Potassium 4.2 mmol/L (3.5-5.1); Sodium 137 mmol/L (136-145); Total Bilirubin 0.2 mg/dL (0.15-1.2); Total Protein 6.9 g/dL (6.6-8.7)
[2020-06-19 06:57] LABS: Glucose Point of Care 235 mg/dL (70-110)
[2020-06-19 07:41] VITALS: BP 142/80; PULSE 76; RESP 20; TEMP 36.8; O2SAT 95
[2020-06-19] MEDS: cetirizine 10 mg Tablet PO (08:01)
[2020-06-19] MEDS: clopidogrel 75 mg Tablet PO (08:01)
[2020-06-19] MEDS: docusate sodium 100 mg Capsule PO (08:01)
[2020-06-19] MEDS: gabapentin 300 mg Capsule 600 MG PO (08:01)
[2020-06-19] MEDS: atorvastatin 40 mg Tablet 80 MG PO (08:01)
[2020-06-19] MEDS: aspirin 81 mg Chew Tablet PO (08:02)
[2020-06-19] MEDS: amlodipine 5 mg Tablet 10 MG PO (08:02)
[2020-06-19] MEDS: isosorbide mononitrate ER 60 mg Tablet PO (08:02)
--- NOTE | 2020-06-19 08:30 | PC.SOCIAL ---
IMM Page 2 of IMM explained to patient. Initialed, dated, and timed and placed in chart. Copy provided to patient.
--- NOTE | 2020-06-19 08:44 | P.PN_ITS ---
Subjective Subjective: Interval history: Patient reports feeling much better. Denies shortness of breath or chest pain. Denies abdominal pain. She is alert and oriented x3. She was able to recall name of president. She was able to walk with physical therapy. She had recent stroke mostly affecting her speech and left upper extremity. It appears the patient had left-sided carotid endartere ctomy previously. She has underlying coronary artery disease requiring 11 stents placed as per patient. She is diabetic. She is currently on aspirin and Plavix as well as statin. Vitals/I&O/Wt Last Vital Signs Temp 98.3 F 06/19/20 07:41 Pulse 76 06/19/20 07:41 Resp 20 H 06/19/20 07:41 BP 142/80 06/19/20 07:41 Pulse Ox 95 06/19/20 07:41 06/18/20 06/19/20 06/19/20 22:59 06:59 14:59 Intake Total 100 / 694 120 / 814 Output Total 600 / 600 Balance 100 / -506 120 / -386 -600 / -600 Physical Exam Const: COMMON NORMALS: no acute distress and patient oriented x3 Resp: COMMON NORMALS: normal respiratory effort and clear to auscultation bilaterally AUSCULTATION: clear to auscultation bilaterally Cardio: COMMON NORMALS: regular rate, regular rhythm and S2 normal heart sound present RATE: regular rate RHYTHM: regular rhythm HEART SOUNDS: S2 normal heart sound present OTHER: No lower extremity edema GI: COMMON NORMALS: Normal to inspection, nondistended, normoactive bowel sounds present, Soft to palpation and non-tender PALPATION: Yes Soft to palpation Neuro: COMMON NORMALS: patient oriented x3 OTHER: Left upper extremity weakness. 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 She is more appropriate. Appears comfortable. More alert and stronger. She is still having difficulties expressing her thoughts, which appears to be secondary to a aphasia and appears to be persistent. She seems to be able to confirm correct answers easier than come up with right words. Still it is difficult to assess whether there is some residual encephalopathy. For now continue to monitor. Hypoglycemia has resolved. confirms that cefuroxime was for a urinary infection. We are awaiting records from [facility]. Hypertension on presentation, blood pressure appears to be somewhat better. Will increase amlodipine dose to 10 mg. Losartan has been on hold due to kidney injury. Underlying a aphasia makes communication difficult. Ammonia is minimally elevated. Significance of this is unclear. She has neutrophilic leukocytosis. Perhaps this, as well as confusion may be secondary to the pneumonitis noted on chest x-ray. With recent CVA, will get speech therapy evaluation. Monitor for any aspiration. UA sample appears dirty with squamous cells, otherwise not suggestive of UTI. Has been on cefuroxime prior to coming to the hospital. Possibility of UTI. I checked and still do not see any records from [facility]. Will need to follow-up to see if there can be any additional causes. Status: Acute (2) CVA (cerebral vascular accident): Just discharged from [facility] in [place] where she was admitted last Thursday. Awaiting documentation. stated he has had difficulties with managing her care at home. business services coordinator is looking on possibilities of [facility]. With decline in functional capacity following stroke she would benefit from rehabilitation. 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 Blood glucose currently in the normal range. Will encourage oral nutrition, and see if we can discontinue D5W. Status: Acute (4) Acute kidney injury: Mild, versus CKD. Status: Acute (5) Opacities of both lungs present on chest x-ray: Possibility of mild pneumonitis. Nonspecific, no reported respiratory symptoms. Remains afebrile. Status: Acute (6) Diabetes mellitus: Chronically appears to be only on short acting insulin Status: Chronic Qualifiers: Diabetes mellitus type: type 2 Diabetes mellitus care home insulin use: with intermediate card tender use Diabetes mellitus complication status: with circulatory complication Diabetes mellitus complication detail: with other circulatory complications Qualified Code(s): E11.59 - Type 2 diabetes mellitus with other circulatory complications; Z79.4 - terminal superintendent (current) use of insulin (7) Single kidney: Secondary to nephrectomy from renal cell carcinoma Status: Chronic (8) Coronary artery disease: Status: Chronic Additional A&P Information Inpatient admission Continue D5W Serial neuro exams Serial Accu-Cheks Monitor for need to resume some insulin I have requested records from [facility] in [place] We will go on and check COVID rapid antigen test secondary to abnormalities on chest x-ray and 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 symptoms Hold home losartan but currently continuing other medications On aspirin, Plavix, statin, carvedilol, isosorbide, amlodipine Continue cetirizine and gabapentin Recheck renal function in the morning Urinalysis is ordered but has not yet been collected Will currently treat with Rocephin and see if we can get clear indication of what the antibiotic coverage is for PT and OT evaluations business services coordinator consultation for possibility of skilled placement status post recent stroke and rather quick readmission to the hospital for medical issues SCDs for DVT prophylaxis until I get a little bit more information about recent hospital stay Supportive care otherwise Full code PLAN: Continue ceftriaxone. Stop IV fluids. Will require speech therapy evaluation as patient appears to have mild pneumonitis. Continue PT/OT. Discussed with patient regarding placement to nursing facility and she agreed if she is not doing well with therapy. Attestations Medical Necessity Statement*: Patient with UTI and recent stroke requires inpatient monitoring and treatment till appropriate discharge arrangements are made. Time Spent in Patient Care: 16 - 35 minutes Coding Level of Care Code Acute [facility] Fwd Diagnoses Acute metabolic encephalopathy G93.41 CVA (cerebral vascular accident) I63.312 CVA mechanism: thrombosis Precerebral and cerebral artery: middle cerebral artery Laterality of affected vessel: left Hypoglycemia E16.2 Acute kidney injury N17.9 Opacities of both lungs present on chest x-ray R91.8 Diabetes mellitus E11.59; Z79.4 Diabetes mellitus type: type 2 Diabetes mellitus care home insulin use: with intermediate card tender use Diabetes mellitus complication status: with circulatory complication Diabetes mellitus complication detail: with other circulatory complications Single kidney Z90.5 Coronary artery disease I25.10
[2020-06-19 10:51] LABS: Glucose Point of Care 326 mg/dL (70-110)
[2020-06-19 11:34] VITALS: BP 130/74; PULSE 70; RESP 16; TEMP 36.4; O2SAT 93
[2020-06-19 15:26] VITALS: BP 128/76; PULSE 70; RESP 18; TEMP 36.6; O2SAT 95
--- NOTE | 2020-06-19 15:41 | P.DS_ITS ---
Discharge Providers Date of Admission: 06/16/20 21:53 Date of Discharge: June 19, 2020 Attending Provider at Admission: Carly Crowder MD Attending Provider at Discharge: Boom Esparza MD Diagnoses at Discharge Discharge Diagnosis (1) Acute metabolic encephalopathy: Status: Acute (2) CVA (cerebral vascular accident): Status: Chronic Qualifiers: CVA mechanism: thrombosis Precerebral and cerebral artery: middle cerebral artery Laterality of affected vessel: left Qualified Code(s): I63.312 - Cerebral infarction due to thrombosis of left middle cerebral artery (3) Hypoglycemia: Status: Acute (4) Acute kidney injury: Status: Acute (5) Opacities of both lungs present on chest x-ray: Status: Acute Problem details: Concerning for pneumonia. (6) Diabetes mellitus: Status: Chronic Qualifiers: Diabetes mellitus type: type 2 Diabetes mellitus skilled nursing insulin use: with termite exterminator helper use Diabetes mellitus complication status: with circulatory complication Diabetes mellitus complication detail: with other circulatory complications Qualified Code(s): E11.59 - Type 2 diabetes mellitus with other circulatory complications; Z79.4 - detention (current) use of insulin (7) Single kidney: Status: Chronic (8) Coronary artery disease: Status: Chronic Reason for Visit Reason for Visit: [facility] Hospital Course Discharge Summary: Patient presented with acute encephalopathy with hypoglycemia and concerning findings of pneumonia especially in view of recent CVA. Patient was admitted and treated with fluids and antibiotics and gradually improved. This morning she appears back to her baseline. She is still generally weak and requires rehabilitation. I will request speech therapy evaluation and after that we will [facility]. I am opting to discharge patient on Levaquin for 5 days as pneumonia cannot be completely ruled out. Patient's insulin therapy will be switched to Lantus and mild sliding scale. This may need to be further adjusted as patient's appetite may get better. Patient to have vitals monitored as blood pressure medications also may need to be adjusted. Physical Exam Narrative: EXAM NARRATIVE: Please see exam in my note earlier today. Discharge Data Data Completed and Pending: Completed Studies During Hospitalization Category Date Time Status CT head wo con* 7 [id number] Urgent Cat Scan 06/16/20 17:34 Completed XR chest 1V [place] ble [id number] Urgent Exams 06/16/20 17:34 Completed Pending at discharge Category Date Time Status Complete Blood Co unt w/Auto AM LABS Lab 06/20/20 04:00 Ordered Comprehensive Met abolic Panel AM LA BS Lab 06/20/20 04:00 Ordered Labs from last 24 hours 06/19/20 06/19/20 06/19/20 10:47 06:53 04:20 WBC RBC Hgb Hct MCV MCH MCHC RDW Plt Count MPV Neut % (Auto) Lymph % (Auto) Mcleod % (Auto) Eos % (Auto) Baso % (Auto) Neut # (Auto) Lymph # (Auto) Mcleod # (Auto) Eos # (Auto) Baso # (Auto) Nucleated RBC % (a uto) Nucleated RBCs # Sodium 137 Potassium 4.2 Chloride 107 Carbon Dioxide 21 L Anion Gap 13.2 BUN 21 Creatinine 1.0 H GFR Calculation 55.1 L Glucose 244 H POC Glucose 326 235 Calculated Osmolal ity 289 Calcium 8.7 Total Bilirubin 0.2 AST 9 ALT 11 Alkaline Phosphata se 94 Total Protein 6.9 Albumin 3.3 L Globulin 3.6 06/19/20 06/18/20 04:20 21:21 WBC 11.2 H RBC 4.03 L Hgb 10.8 L Hct 35.8 L MCV 88.8 MCH 26.8 L MCHC 30.2 RDW 13.9 Plt Count 306 MPV 10.0 Neut % (Auto) 64.8 Lymph % (Auto) 21.1 Mcleod % (Auto) 9.6 Eos % (Auto) 3.5 Baso % (Auto) 0.6 Neut # (Auto) 7.28 Lymph # (Auto) 2.4 Mcleod # (Auto) 1.1 H Eos # (Auto) 0.4 Baso # (Auto) 0.1 Nucleated RBC % (a uto) 0 Nucleated RBCs # 0.0 Sodium Potassium Chloride Carbon Dioxide Anion Gap BUN Creatinine GFR Calculation Glucose POC Glucose 302 Calculated Osmolal ity Calcium Total Bilirubin AST ALT Alkaline Phosphata se Total Protein Albumin Globulin Vitals: Last Vital Signs Temp 97.9 F 06/19/20 15:26 Pulse 70 06/19/20 15:26 Resp 18 06/19/20 15:26 BP 128/76 06/19/20 15:26 Pulse Ox 95 06/19/20 15:26 Discharge Plan Discharge Patient Disposition: Xfer SNF Condition: Stable Prescriptions: New Lantus U-100 Insulin 100 unit/mL Solution 10 unit SUBCUT BEDTIME Qty: 30 RF: 0 docusate sodium 100 mg Capsule 100 mg PO BID Qty: 60 RF: 0 insulin aspart U-100 [Novolog U-100 Insulin aspart] 100 unit/mL Solution 0 unit SUBCUT TIDWM Qty: 30 RF: 0 levofloxacin [Levaquin] 500 mg tablet 500 mg PO DAILY 5 Days Qty: 5 RF: 0 Continued losartan 50 mg tablet 50 mg PO DAILY RF: 0 atorvastatin 80 mg tablet 80 mg PO DAILY RF: 0 carvedilol 25 mg tablet 25 mg PO BID RF: 0 gabapentin 600 mg tablet 600 mg PO BID RF: 0 cetirizine 10 mg Tablet 10 mg PO DAILY RF: 0 clopidogrel 75 mg tablet 75 mg PO DAILY RF: 0 amlodipine 5 mg tablet 5 mg PO DAILY RF: 0 isosorbide mononitrate 60 mg tablet extended release 24 hr 60 mg PO DAILY RF: 0 aspirin 81 mg Tablet,Chewable 81 mg PO DAILY RF: 0 Discontinued cefuroxime axetil 500 mg tablet 500 mg PO BID RF: 0 Reglan 10 mg Tablet 10 mg PO Q6H PRN (Reason: Stomach Upset) RF: 0 Novolin R Flexpen 100 unit/mL (3 mL) Insulin Pen 30 unit SUBCUT TID RF: 0 Discharge Orders: Discharge Order (Routine); Ordered 06/19/20 Ordered By: Boom Esparza Referrals: [facility] [Outside] Discharge Diet: Advance as tolerated Discharge Activity: Increase activity as tolerated Activity Restrictions/Additional Instructions: Please call your doctor or present to emergency department if your condition worsens or you develop diarrhea, lightheadedness, fatigue or see blood in your stool or black stool. Patient to continue with speech, occupational and physical therapy. Patient to continue with mild sliding scale insulin to be titrated as needed. Discharge Attestations Time Spent in Discharge Care*: less than 30 min Quality Metrics Clinical Quality Measures During this hospital stay, did patient experience: None Coding Level of Care Code Acute Clinical Nursing Director for [facility] Diagnoses Acute metabolic encephalopathy G93.41 CVA (cerebral vascular accident) I63.312 CVA mechanism: thrombosis Precerebral and cerebral artery: middle cerebral artery Laterality of affected vessel: left Hypoglycemia E16.2 Acute kidney injury N17.9 Opacities of both lungs present on chest x-ray R91.8 Diabetes mellitus E11.59; Z79.4 Diabetes mellitus type: type 2 Diabetes mellitus skilled nursing insulin use: with skilled nursing use Diabetes mellitus complication status: with circulatory complication Diabetes mellitus complication detail: with other circulatory complications Single kidney Z90.5 Coronary artery disease I25.10
[2020-06-19 15:53] VITALS: BP 128/76; PULSE 70; RESP 18; TEMP 36.6; O2SAT 95
[2020-06-19 17:20] VITALS: BP 128/76; PULSE 70; RESP 18; TEMP 36.6; O2SAT 95
--- NOTE | 2020-06-19 17:22 | PC.NURSE ---
Patient IV removed intact. Patient is A&Ox3. Respirations even and non-labored on room air. Patient wheel chaired to private car.
== END 2020-06-19 17:20 | disposition skilled nursing facility (03) | DRG 637 ==
LOC: ER 18:00 → MEDSURG 22:25
PROVIDERS: Family Medicine; Internal Medicine; Admitting Provider Hospitalist; Visit Provider Internal Medicine
DX: E11.649 Type 2 diabetes mellitus with hypoglycemia without coma (principal); G93.41 Metabolic encephalopathy; J18.9 Pneumonia, unspecified organism; N39.0 Urinary tract infection, site not specified; Z79.4 Long term (current) use of insulin; I25.10 Atherosclerotic heart disease of native coronary artery without angina pectoris; Z95.5 Presence of coronary angioplasty implant and graft; E78.5 Hyperlipidemia, unspecified; I10 Essential (primary) hypertension; Z85.528 Personal history of other malignant neoplasm of kidney; Z90.5 Acquired absence of kidney; N17.9 Acute kidney failure, unspecified; I69.320 Aphasia following cerebral infarction; I69.334 Monoplegia of upper limb following cerebral infarction affecting left non-dominant side; Z79.02 Long term (current) use of antithrombotics/antiplatelets; Z79.82 Long term (current) use of aspirin
CPT/HCPCS: 12345; 36415; 36416; 36600; 70450; 71045; 80053; 81001; 82140; 82550; 82805; 82962; 83605; 83690; 83735; 84100; 85025; 87426; 92523; 92610; 96372; 97110; 97116; 97161; 97166; 97530; 97535; 99282; J0360; J0696; J1815 ×2